=== PATIENT | male | born 1955 | race Caucasian/White ===

== ENCOUNTER 2016-11-30 03:10 | Emergency (ER) | payer MEDICARE, OTHER ==
--- NOTE | 2016-11-30 03:25 | ED Physician Documentation ---
General Adult - HISTORIAN Historian: paramedics, other (associate sales manager) - HPI Stated Complaint: fell Chief Complaint: General Adult Additional Information: Band Machine Operator in home today, found patient on floor at side of bed and could not get him up. Pt said to be not in his usual mental state. Patient's usual associate sales manager who was not present in the home today says patient began to fall out of bed two weeks ago, and today was the second time. Wet cough since 11/27. No fever. - ROS CONST: denies: fever GI/: other (typically a finicky eater) NEURO/PSYCH: difficulty walking (but not new. Wears a gait beltto facilitate assistance when needed.), difficulty with speech (impediment) - PAST HX Past History: other (Alzheimer's, NIDDM, seizures, severe MR, Down's syndrome) Allergies/Adverse Reactions: Allergies Allergy/AdvReac Type Severity Reaction Status Date / Time bacitracin Allergy Verified 11/30/16 03:35 [From Neosporin ([id number]-[id number])] bacitracin zinc Allergy Verified 11/30/16 03:35 [From Neosporin (cmk-tmq-egmse)] neomycin sulfate Allergy Verified 11/30/16 03:35 [From Neosporin (aiu-ztq-minzo)] polymyxin B Allergy Verified 11/30/16 03:35 [From Neosporin (dgx-xnc-swowc)] Home Medications: Ambulatory Orders Medication Instructions Recorded Acetaminophen [Tylenol Extra 1,000 mg PO Q4 PRN 11/03/13 Strength] Artificial Tears 11/03/13 Ibuprofen [Advil] 600 mg PO TID PRN 11/03/13 Levetiracetam [Keppra] 5 ml PO BID 11/30/16 Memantine HCl [Namenda] 10 mg PO BID 11/30/16 Zonisamide [Zonegran] 100 mg PO BID 11/30/16 - SOCIAL HX Smoking History: non-smoker - FAMILY HX Family History: No - VITAL SIGNS Vital Signs: Vital Signs Temp Pulse Resp BP Pulse Ox 128/68 11/03/13 13:35 - REVIEWED ASSESSMENTS Nursing Assessment Reviewed: Yes Vitals Reviewed: Yes Progress - Progress Progress: HISTORY: 61-year-old male with altered mental status, multiple falls COMPARISON: CT scan of the head dated 11/03/2013. TECHNIQUE: Noncontrast axial CT images of the head were performed. FINDINGS: There is mild global brain atrophy. There is mild decreased attenuation in the periventricular white matter No intracranial hemorrhage, mass , midline shift, or evidence of acute large vessel infarct. The atria and temporal horns of the lateral ventricles are more prominent than that seen on the previous CT scan. There is mucosal thickening and volume loss of the left maxillary sinus. There is bilateral EAC cerumen impaction. No cranial fracture or scalp edema. IMPRESSION: 1. No evidence of acute head trauma. 2. Mild global brain atrophy and chronic ischemic changes. As there is prominence of the lateral ventricles, especially involving the atria and temporal horns, consider normal pressure hydrocephalus. Electronically signed on Nov 30, 2016 4:47:16 AM CUSHION COVER INSPECTOR by: Vic Flanagan HISTORY: 61-year-old male with cough, multiple falls. COMPARISON: None available. TECHNIQUE: Single portable AP view of the chest was performed. FINDINGS: No pneumothorax, consolidative infiltrates, or pulmonary edema. The heart is not enlarged. No fractures are identified about the bony thorax. IMPRESSION: No acute cardiopulmonary process identified. Electronically signed on Nov 30, 2016 5:23:00 AM CUSHION COVER INSPECTOR by: Vic Flanagan Pulse ox 90-93% on RA. Email to Dr. Scruggs re: possible NPH noted above. ED Results Lab/Radiology - Orders Orders: ED Orders Category Date Time Status Saline Lock [Remove IV/Saline Lock] 1T Care 11/30/16 03:12 Ordered CHEST 1 VIEW [RAD] Stat Exams 11/30/[address] BRAIN W/O CONTRAST Stat Exams 11/30/16 Ordered CBC/PLATELET/DIFF Routine Lab 11/30/16 Ordered CMP Routine Lab 11/30/16 Ordered GRP A STREP SCREEN Stat Lab 11/30/16 Ordered INFLUENZA A&B Stat Lab 11/30/16 Uncollected URINALYSIS Routine Lab 11/30/16 Ordered General Adult Physical Exam - PHYSICAL EXAM GENERAL APPEARANCE: no distress EENT: eye inspection normal, ENT inspection normal NECK: normal inspection, supple RESPIRATORY: no resp distress, chest non-tender, breath sounds normal CVS: reg rate & rhythm, heart sounds normal ABDOMEN: soft, normal bowel sounds, no distension, non-tender RECTAL: deferred BACK: normal inspection, other (movements w/o pain) SKIN: warm/dry, normal color EXTREMITIES: non-tender, no evidence of injury NEURO: CN's nml as tested, motor nml, sensation nml Discharge Clincal Impression: Viral URI Additional Instructions: Drink plenty of water. Follow up with Dr. Scruggs if you have fevers 102 or higher or difficulty breathing. Home Medications: Ambulatory Orders Acetaminophen [Tylenol Extra Strength] 1,000 mg PO Q4 PRN 11/03/13 Artificial Tears 11/03/13 Ibuprofen [Advil] 600 mg PO TID PRN 11/03/13 Levetiracetam [Keppra] 5 ml PO BID 11/30/16 Memantine HCl [Namenda] 10 mg PO BID 11/30/16 Zonisamide [Zonegran] 100 mg PO BID 11/30/16 Condition: Fair Disposition: 01 HOME, SELF-CARE Decision to Admit: NO Decision Time: 05:32
[2016-11-30 04:01] LABS: eGFR (African) > 60; eGFR (Non-African) > 60
[2016-11-30 04:22] LABS: MEAN CORPUSCULAR HEMOGLOBIN 33.7 pg (28.0-34.0)
[2016-11-30 05:47] VITALS: BP 135/69
--- NOTE | 2016-11-30 07:31 | Diagnostic Imaging Report ---
[facility] [address] [facility] [address] [place], [place]. [address] Report Submission Date: Nov 30, 2016 4:47:16 AM PLANT PROTECTION SUPERVISOR Patient Study Name: JAYCEE CORRIGAN Date: Nov 30, 2016 3:55:28 AM PLANT PROTECTION SUPERVISOR Modality Type: CT\SR Gender: M Description: CT BRAIN W/O CONTRAST : 53 Institution: [facility] Physician: ALICJA RODRIGUEZ - ER HISTORY: 61-year-old male with altered mental status, multiple falls COMPARISON: CT scan of the head dated 11/03/2013. TECHNIQUE: Noncontrast axial CT images of the head were performed. FINDINGS: There is mild global brain atrophy. There is mild decreased attenuation in the periventricular white matter No intracranial hemorrhage, mass , midline shift, or evidence of acute large vessel infarct. The atria and temporal horns of the lateral ventricles are more prominent than that seen on the previous CT scan. There is mucosal thickening and volume loss of the left maxillary sinus. There is bilateral EAC cerumen impaction. No cranial fracture or scalp edema. IMPRESSION: 1. No evidence of acute head trauma. 2. Mild global brain atrophy and chronic ischemic changes. As there is prominence of the lateral ventricles, especially involving the atria and temporal horns, consider normal pressure hydrocephalus. Electronically signed on Nov 30, 2016 4:47:16 AM PLANT PROTECTION SUPERVISOR by: Vic HERNÁNDEZ
--- NOTE | 2016-11-30 07:32 | Diagnostic Imaging Report ---
[facility] [address] [facility] [address] Report Submission Date: Nov 30, 2016 5:23:00 AM CORRECTIONAL OFFICER Patient Study Name: JAYCEE CORRIGAN Date: Nov 30, 2016 4:04:40 AM CORRECTIONAL OFFICER Modality Type: CR Gender: M Description: CHEST : 53 Institution: [facility] Physician: ALICJA RODRIGUEZ - ER HISTORY: 61-year-old male with cough, multiple falls. COMPARISON: None available. TECHNIQUE: Single portable AP view of the chest was performed. FINDINGS: No pneumothorax, consolidative infiltrates, or pulmonary edema. The heart is not enlarged. No fractures are identified about the bony thorax. IMPRESSION: No acute cardiopulmonary process identified. Electronically signed on Nov 30, 2016 5:23:00 AM CORRECTIONAL OFFICER by: Vic HERNÁNDEZ
[2016-12-01 06:03] LABS: MONOCYTES % 5 % (0-11); SEGMENTED NEUTROPHILS % 83 % (39-79)
== END 2016-11-30 05:38 | disposition home or self-care (01) ==
LOC: ED 03:10
DX: J06.9 Acute upper respiratory infection, unspecified (principal)
CPT/HCPCS: 70450; 71010; 80053; 85025; 87070; 87400; 87880; 99283

== ENCOUNTER 2016-12-03 13:07 | Outpatient (CLI) | payer MEDICARE, MEDICAID ==
[2016-12-03 13:20] LABS: APPEARANCE,URINE Clear (CLEAR); COLOR,URINE Yellow (YELLOW); OCCULT BLOOD,URINE Negative (NEGATIVE); PH URINE 5.5 (5.0 - 8.0)
== END 2016-12-03 13:10 ==
LOC: LAB 13:07
PROVIDERS: ATTEND Physician Assistant
DX: R41.82 Altered mental status, unspecified (principal); W19.XXXA Unspecified fall, initial encounter; Y92.9 Unspecified place or not applicable; Y93.9 Activity, unspecified
CPT/HCPCS: 81002

== ENCOUNTER 2016-12-31 08:22 | Outpatient (CLI) | payer MEDICARE, OTHER | END 2016-12-31 08:24 | LOC: POD 08:22 | PROVIDERS: ATTEND Podiatrist Public Medicine | DX: E11.9 Type 2 diabetes mellitus without complications (principal); B35.1 Tinea unguium; L60.0 Ingrowing nail; M79.674 Pain in right toe(s); M79.675 Pain in left toe(s) | CPT/HCPCS: 11721; G0463 ==

== ENCOUNTER 2017-05-06 08:19 | Outpatient (CLI) | payer MEDICARE, OTHER | END 2017-05-06 08:20 | LOC: POD 08:19 | PROVIDERS: ATTEND Podiatrist Public Medicine | DX: E11.9 Type 2 diabetes mellitus without complications (principal); B35.1 Tinea unguium; L60.0 Ingrowing nail; M79.674 Pain in right toe(s); M79.675 Pain in left toe(s); M20.11 Hallux valgus (acquired), right foot; M20.12 Hallux valgus (acquired), left foot | CPT/HCPCS: 11721; G0463 ==

== ENCOUNTER 2017-07-25 09:05 | Emergency (ER) | payer MEDICARE, OTHER ==
[2017-07-25] MEDS ORDERED: 0.9 % SODIUM CHLORIDE 500 ML IV ONE (09:34)
--- NOTE | 2017-07-25 09:45 | ED Physician Documentation ---
General Adult - HISTORIAN Historian: patient - HPI Stated Complaint: Fatigue Chief Complaint: General Adult Onset: hours Timing: still present Severity: moderate Further Comments: yes (Pt is a 62 yo male with MR from [facility] who appears fatigued this am. "Not himself." Pt is not as active as usual. Pt has been eating, but not drinking as much as usual. Pt has hx seizure d/o.) - ROS CONST: other (Pt cannot give ROS) - PAST HX Past History: other (Down's Syndrome, seizure d/o, DM.) Allergies/Adverse Reactions: Allergies Allergy/AdvReac Type Severity Reaction Status Date / Time bacitracin Allergy Verified 07/25/17 09:20 [From Neosporin (shr-bpq-[id number])] bacitracin zinc Allergy Verified 07/25/17 09:20 [From Neosporin (cos-lxw-ypcnz)] neomycin sulfate Allergy Verified 07/25/17 09:20 [From Neosporin (jyl-pue-mtrcv)] polymyxin B Allergy Verified 07/25/17 09:20 [From Neosporin (krd-tba-zgbee)] Home Medications: Ambulatory Orders Medication Instructions Recorded Acetaminophen [Tylenol Extra 1,000 mg PO Q4 PRN 11/03/13 Strength] Artificial Tears 11/03/13 Ibuprofen [Advil] 600 mg PO TID PRN 11/03/13 Levetiracetam [Keppra] 5 ml PO BID 11/30/16 Memantine HCl [Namenda] 10 mg PO BID 11/30/16 Zonisamide [Zonegran] 100 mg PO BID 11/30/16 - SOCIAL HX Smoking History: non-smoker Alcohol Use: none Drug Use: none - FAMILY HX Family History: No - VITAL SIGNS Vital Signs: Vital Signs Temp Pulse Resp BP Pulse Ox 98 F 72 18 102/68 98 07/25/17 09:05 07/25/17 09:05 07/25/17 09:05 07/25/17 09:05 07/25/17 09:05 - REVIEWED ASSESSMENTS Nursing Assessment Reviewed: Yes Vitals Reviewed: Yes Progress - Progress Progress: 1 L NS IVF improved Keppra Level - pending Zonisamide Level - pending f/u pcp prn - EKG/XRAY/CT XRAY: chest (neg) ED Results Lab/Radiology - Orders Orders: ED Orders Category Date Time Status 0.9 % Sodium Chloride [Normal Saline] 500 ml Med 07/25/17 09:34 Discontinued IV .STK-MED General Adult Physical Exam - PHYSICAL EXAM GENERAL APPEARANCE: no distress EENT: eye inspection normal, pharynx normal NECK: normal inspection, supple RESPIRATORY: no resp distress, chest non-tender, breath sounds normal CVS: reg rate & rhythm, heart sounds normal ABDOMEN: soft, no organomegaly, normal bowel sounds BACK: normal inspection, no CVA tenderness SKIN: warm/dry, normal color EXTREMITIES: non-tender, normal range of motion, no edema NEURO: other (baseline neuromuscular status) Discharge Clincal Impression: Mild dehydration Referrals: Aguila Scruggs MD [Primary Care Provider] - Condition: Stable Disposition: 01 HOME, SELF-CARE Decision to Admit: NO Decision Time: 12:00
[2017-07-25] MEDS: 0.9 % SODIUM CHLORIDE 500 ML IV ONE ×2 (09:46→11:06)
[2017-07-25 10:04] LABS: BASOPHILS % 0.6 (0.0-1.5); EOSINOPHILS % 0.2 % (0.0-6.8); MEAN CORPUSCULAR HEMOGLOBIN 33.2 pg (28.0-34.0); MEAN CORPUSCULAR VOLUME 96.6 fl (80.0-100.0); MONOCYTES % 3.5 % (0.0-11.0); NEUTROPHILS # 10.3 # k/uL (1.4-7.7)
[2017-07-25 10:40] LABS: eGFR (African) > 60; eGFR (Non-African) > 60
[2017-07-25 12:16] VITALS: BP 127/62
--- NOTE | 2017-07-25 12:58 | Diagnostic Imaging Report ---
JAYCEE LIU - ROBERT [facility] [address] [facility] [address] [address] Report Submission Date: Jul 25, 2017 11:30:17 AM CDT Patient Study Name: JAYCEE CORRIGAN Date: Jul 25, 2017 11:03:07 AM CDT Modality Type: CR Gender: M Description: CHEST : 53 Institution: [facility] Physician: JAYCEE LIU - ER Chest -one view CLINICAL HISTORY: Cough. FINDINGS: Examination of the chest single portable AP view 07/25/2017 1103 hr with comparison to examination 11/30/2016 demonstrates lungs to be clear. Cardiovascular and mediastinal silhouettes are stable. The aorta is atherosclerotic. Bony thorax appears intact. IMPRESSION: No significant change. Aortic atherosclerosis. No active disease. Electronically signed on Jul 25, 2017 11:30:17 AM CDT by: Ethan HERNÁNDEZ
[2017-07-25 20:11] LABS: LEVETIRACETAM(KEPPRA) LEVEL 56.5 ug/mL (6.0-46.0)
== END 2017-07-25 12:14 | disposition home or self-care (01) ==
LOC: ED 09:05
DX: E86.0 Dehydration (principal)
CPT/HCPCS: 71010; 80053; 80177; 85025; G0480; J7060; 96360; 99283

== ENCOUNTER 2017-07-28 12:14 | Outpatient (CLI) | payer MEDICARE, OTHER ==
[2017-07-28 12:21] LABS: APPEARANCE,URINE Clear (CLEAR); COLOR,URINE Yellow (YELLOW); OCCULT BLOOD,URINE Negative (NEGATIVE); PH URINE 5.5 (5.0 - 8.0); UROBILINOGEN URINE 0.2 Eu (0.2-1.0)
== END 2017-07-28 12:15 ==
LOC: LAB 12:14
PROVIDERS: ATTEND Family Medicine
DX: R30.0 Dysuria (principal)
CPT/HCPCS: 81002

== ENCOUNTER 2017-08-05 08:34 | Outpatient (CLI) | payer MEDICARE, OTHER | END 2017-08-05 08:45 | LOC: POD 08:34 | PROVIDERS: ATTEND Podiatrist Public Medicine | DX: B35.1 Tinea unguium (principal); E11.9 Type 2 diabetes mellitus without complications; M20.12 Hallux valgus (acquired), left foot; M20.11 Hallux valgus (acquired), right foot; L60.0 Ingrowing nail; M79.675 Pain in left toe(s); M79.674 Pain in right toe(s) | CPT/HCPCS: 11721; G0463 ==

== ENCOUNTER 2017-09-02 08:08 | Outpatient (CLI) | payer MEDICARE, OTHER ==
[2017-09-02 08:38] LABS: MEAN CORPUSCULAR HEMOGLOBIN 32.6 pg (28.0-34.0); MEAN CORPUSCULAR VOLUME 101.7 fl (80.0-100.0)
[2017-09-02 09:23] LABS: eGFR (African) > 60; eGFR (Non-African) > 60
== END 2017-09-02 08:10 ==
LOC: LAB 08:08
PROVIDERS: ATTEND Family Medicine
DX: E11.9 Type 2 diabetes mellitus without complications (principal); Z79.899 Other long term (current) drug therapy; G40.909 Epilepsy, unspecified, not intractable, without status epilepticus
CPT/HCPCS: 36415; 80053; 80171; 80177; 83036; 85027

== ENCOUNTER 2017-11-04 08:46 | Outpatient (CLI) | payer MEDICARE, OTHER | END 2017-11-04 08:47 | LOC: POD 08:46 | PROVIDERS: ATTEND Podiatrist Public Medicine | DX: E11.9 Type 2 diabetes mellitus without complications (principal); B35.1 Tinea unguium; L60.0 Ingrowing nail; M79.674 Pain in right toe(s); M79.675 Pain in left toe(s); M20.11 Hallux valgus (acquired), right foot; M20.12 Hallux valgus (acquired), left foot | CPT/HCPCS: 11721; G0463 ==

== ENCOUNTER 2017-12-11 14:21 | Outpatient (CLI) | payer MEDICARE, OTHER ==
[2017-12-11 15:43] LABS: BASOPHILS % 0.2 (0.0-1.5); EOSINOPHILS % 0.1 % (0.0-6.8); MEAN CORPUSCULAR HEMOGLOBIN 33.7 pg (28.0-34.0); MEAN CORPUSCULAR VOLUME 99.5 fl (80.0-100.0); MONOCYTES % 3.8 % (0.0-11.0); NEUTROPHILS # 7.3 # k/uL (1.4-7.7)
[2017-12-11 17:28] LABS: eGFR (African) > 60; eGFR (Non-African) > 60
--- NOTE | 2017-12-11 19:05 | Diagnostic Imaging Report ---
DANUTA DONIS [facility] [address] [facility] [address] [address] Report Submission Date: Dec 11, 2017 3:13:41 PM PLATE GRINDER Patient Study Name: JAYCEE CORRIGAN Date: Dec 11, 2017 2:39:20 PM PLATE GRINDER Modality Type: DX Gender: M Description: CHEST : 53 Institution: [facility] Physician: DANUTA DONIS Examination: PA and lateral chest. History: CXR, AP AND LAT, LETHARGY X1 DAY, PT UNABLE TO FOLLOW BREATHING INSTRUCTIONS (Hx) Comparison exam: None available for direct review. Findings: PA lateral chest demonstrate a normal cardiac and mediastinal silhouette. Moderate to large sized right base parenchymal haziness with blunting of the costophrenic margin. Left hemithorax without focal consolidative process. Osseous structures are appropriate for age. Impression: Right base infiltrate/effusion. Electronically signed on Dec 11, 2017 3:13:41 PM PLATE GRINDER by: David HERNÁNDEZ
== END 2017-12-11 14:22 ==
LOC: LAB 14:21
PROVIDERS: ATTEND Physician Assistant
DX: R05 Cough (principal)
CPT/HCPCS: 36415; 71046; 80053; 85025

== ENCOUNTER 2017-12-21 08:00 | Emergency (ER) | payer MEDICARE, OTHER ==
[2017-12-21 09:12] LABS: eGFR (African) > 60; eGFR (Non-African) > 60
--- NOTE | 2017-12-21 09:47 | ED Physician Documentation ---
General Adult - HISTORIAN Historian: other (chronic care nurse) - HPI Stated Complaint: bilat foot swelling Chief Complaint: General Adult Further Comments: yes (62 year old male patient brought in via EMS with difficulty walking. Patient caregiver reports patient would not walk this morning. Patient is non-verbal, walks with assistance. bit shaver denies any injury or fall.) - ROS CONST: recent illness (pneumonia - recently treated with antibiotics. ) EYES/ENT: none CVS/RESP: none GI/: none MS/SKIN/LYMPH: ankle swelling - PAST HX Past History: other (Downs syndrome, mental retardation, Seizures, Alzheimers) Other History: diabetes Type 2 Allergies/Adverse Reactions: Allergies Allergy/AdvReac Type Severity Reaction Status Date / Time bacitracin Allergy Verified 07/25/17 09:20 [From Neosporin (ila-mhy-lbywj)] bacitracin zinc Allergy Verified 07/25/17 09:20 [From Neosporin (kpx-lxm-hfukm)] neomycin sulfate Allergy Verified 07/25/17 09:20 [From Neosporin (lxq-bks-qivrl)] polymyxin B Allergy Verified 07/25/17 09:20 [From Neosporin (cvs-zjf-dgsee)] Home Medications: Ambulatory Orders Medication Instructions Recorded Acetaminophen [Tylenol Extra 1,000 mg PO Q4 PRN 11/03/13 Strength] Artificial Tears 11/03/13 Ibuprofen [Advil] 600 mg PO TID PRN 11/03/13 Levetiracetam [Keppra] 5 ml PO BID 11/30/16 Memantine HCl [Namenda] 10 mg PO BID 11/30/16 Zonisamide [Zonegran] 100 mg PO BID 11/30/16 - SOCIAL HX Smoking History: non-smoker - FAMILY HX Family History: No - VITAL SIGNS Vital Signs: Vital Signs Temp Pulse Resp BP Pulse Ox 98.0 F 58 L 14 127/50 95 12/21/17 08:07 12/21/17 09:30 12/21/17 08:07 12/21/17 08:07 12/21/17 09:30 - REVIEWED ASSESSMENTS Nursing Assessment Reviewed: Yes Vitals Reviewed: Yes ED Results Lab/Radiology - Lab Results Lab Results: Lab Results 12/21/17 12/21/17 08:50 08:50 Sodium 145 mmol/L mmol/L (136-145) Potassium 3.9 mmol/L mmol/L (3.5-5.1) Chloride 104 mmol/L mmol/L (98-107) Carbon Dioxide 29 mmol/L mmol/L (22-30) BUN 15 mg/dL mg/dL (9-20) Creatinine 0.80 mg/dL mg/dL (0.66-1.25) Estimated Creat Clear 133 Est GFR ( Amer) > 60 (60 - ) Est GFR (Non-Af Amer) > 60 (60 - ) Glucose 164 mg/dL H mg/dL (74-106) Calcium 8.9 mg/dL mg/dL (8.4-10.2) Total Bilirubin 0.6 mg/dL mg/dL (0.2-1.3) AST 30 U/L U/L (15-46) ALT 42 U/L U/L (13-69) Alkaline Phosphatase 146 U/L H U/L (38-126) NT-Pro-B Natriuret Pep 97.6 pg/mL pg/mL (15.0-125.0) Total Protein 6.7 g/dL g/dL (6.3-8.2) Albumin 3.4 g/dL L g/dL (3.5-5.0) - Radiology Radiology Impressions: AP and lateral chest CLINICAL HISTORY: Cough. FINDINGS: Examination of the chest in AP and lateral views with comparison to examination of 12/11/2017 demonstrates improved aeration right lung base with minimal residual infiltrate or atelectasis. There is mild elevation right hemidiaphragm. Cardiovascular and mediastinal silhouettes are stable. The aorta is atherosclerotic. Left lung remains clear. IMPRESSION: Improved aeration right lung base with residual right basilar infiltrate or atelectasis. Electronically signed on Dec 21, 2017 8:46:54 AM CDT by: Ehtan Garza - Orders Orders: ED Orders Category Date Time Status Continuous EKG monitoring Q30M Care 12/21/17 08:07 Active Continuous Pulse Oximetry Q30M Care 12/21/17 08:[address] IV Lock 1T Care 12/21/17 08:08 Active CHEST 2VIEW [RAD] Stat Exams 12/21/17 08:09 Taken BNP [NT-proBNP] Stat Lab 12/21/17 08:50 Completed CBC REF Stat Lab 12/21/17 08:50 Received CMP Stat Lab 12/21/17 08:50 Completed UA W/MICRO IF INDICATED Stat Lab 12/21/17 08:08 Ordered EKG WITH COMPARISON Stat Ther 12/21/17 08:07 Completed General Adult Physical Exam - PHYSICAL EXAM GENERAL APPEARANCE: no distress EENT: eye inspection normal, BESSY RESPIRATORY: no resp distress, chest non-tender, breath sounds normal CVS: reg rate & rhythm, heart sounds normal, equal pulses, no murmur, no gallop , PMI nml, no JVD, no friction rub, 24 ABDOMEN: soft, no organomegaly, normal bowel sounds, no abdominal bruit, no distension SKIN: normal color, warm/dry, NR, INT, PAL, DR EXTREMITIES: non-tender, edema (3+ bilateral ankles) NEURO: other (non-verbal, MAEx4, calm and cooperative; ) Discharge Clincal Impression: Dependent edema Referrals: Aguila Scruggs MD [Primary Care Provider] - 2 Days Condition: Stable Disposition: 01 HOME, SELF-CARE Decision to Admit: NO Decision Time: 09:47
[2017-12-21 10:31] VITALS: BP 141/73
[2017-12-21 11:01] LABS: BASO % 0.6 % (0.0-1.5); EOS % 0.9 % (0.0-6.8); MCH. 33.6 pg (28.0-34.0); MONOCYTE % 3.7 % (0.0-11.0); MONOCYTE ABS # 0.35 thou/uL (0.00-0.90); PLATELET COUNT 323 thou/uL (130-400)
--- NOTE | 2017-12-21 14:32 | Diagnostic Imaging Report ---
LAKEISHA PADILLA (FURNACE CHARGER) - ER [facility] [address] [address] Report Submission Date: Dec 21, 2017 8:46:54 AM CDT Patient Study Name: JAYCEE CORRIGAN Date: Dec 21, 2017 8:20:27 AM CDT Modality Type: DX Gender: M Description: CHEST : 53 Institution: [facility] Physician: LAKEISHA PADILLA) - ER AP and lateral chest CLINICAL HISTORY: Cough. FINDINGS: Examination of the chest in AP and lateral views with comparison to examination of 12/11/2017 demonstrates improved aeration right lung base with minimal residual infiltrate or atelectasis. There is mild elevation right hemidiaphragm. Cardiovascular and mediastinal silhouettes are stable. The aorta is atherosclerotic. Left lung remains clear. IMPRESSION: Improved aeration right lung base with residual right basilar infiltrate or atelectasis. Electronically signed on Dec 21, 2017 8:46:54 AM CDT by: Ethan HERNÁNDEZ
--- NOTE | 2017-12-22 06:41 | Diagnostic Imaging Report ---
LAKEISHA PADILLA (CONCRETE PANEL INSTALLER) - ER [facility] [place] [facility] [address] [address] Report Submission Date: Dec 21, 2017 8:46:54 AM CDT Patient Study Name: JAYCEE CORRIGAN Date: Dec 21, 2017 8:20:27 AM CDT Modality Type: DX Gender: M Description: CHEST : 53 Institution: [facility] [place] [facility] Physician: LAKEISHA PADILLA) - ER AP and lateral chest CLINICAL HISTORY: Cough. FINDINGS: Examination of the chest in AP and lateral views with comparison to examination of 12/11/2017 demonstrates improved aeration right lung base with minimal residual infiltrate or atelectasis. There is mild elevation right hemidiaphragm. Cardiovascular and mediastinal silhouettes are stable. The aorta is atherosclerotic. Left lung remains clear. IMPRESSION: Improved aeration right lung base with residual right basilar infiltrate or atelectasis. Electronically signed on Dec 21, 2017 8:46:54 AM CDT by: Ethan HERNÁNDEZ
== END 2017-12-21 10:29 | disposition home or self-care (01) ==
LOC: ED 08:00
DX: R60.9 Edema, unspecified (principal)
CPT/HCPCS: 71046; 80053; 83880; 85025; 99283; S1016

== ENCOUNTER 2017-12-23 08:00 | Emergency (ER) | payer MEDICARE, OTHER ==
--- NOTE | 2017-12-23 08:07 | ED Physician Documentation ---
General Adult - HISTORIAN Historian: patient - HPI Stated Complaint: urinary retention Chief Complaint: Male Genitourinary Problems Onset: other (over last two weeks urinary output has decreased) Timing: still present Severity: mild Further Comments: yes (his caregiver states he has not had any urinary output since 4pm yesterday States 2 weeks now he has had decreased ouput. denies any pain symptoms . Pt is tolieted he does not tell staff when he needs to urinate no fever.) Last known Well Code/Unknown Code: Unknown - ROS CONST: no problems, recent illness (pnuemonia ) EYES/ENT: none CVS/RESP: none GI/: none MS/SKIN/LYMPH: none - PAST HX Past History: other Surgeries/Procedures: other Immunizations: UTD Allergies/Adverse Reactions: Allergies Allergy/AdvReac Type Severity Reaction Status Date / Time bacitracin Allergy Verified 07/25/17 09:20 [From Neosporin (wxe-btv-pwyct)] bacitracin zinc Allergy Verified 07/25/17 09:20 [From Neosporin (mtr-bft-dcngm)] neomycin sulfate Allergy Verified 07/25/17 09:20 [From Neosporin (asi-zgq-eutzr)] polymyxin B Allergy Verified 07/25/17 09:20 [From Neosporin (auf-qyc-twsqz)] Home Medications: Ambulatory Orders Medication Instructions Recorded Acetaminophen [Tylenol Extra 1,000 mg PO Q4 PRN 11/03/13 Strength] Artificial Tears 11/03/13 Ibuprofen [Advil] 600 mg PO TID PRN 11/03/13 Levetiracetam [Keppra] 5 ml PO BID 11/30/16 Memantine HCl [Namenda] 10 mg PO BID 11/30/16 Zonisamide [Zonegran] 100 mg PO BID 11/30/16 - SOCIAL HX Smoking History: non-smoker Alcohol Use: none Drug Use: none - FAMILY HX Family History: No - VITAL SIGNS Vital Signs: Vital Signs Temp Pulse Resp BP Pulse Ox 141/73 12/21/17 10:29 - REVIEWED ASSESSMENTS Nursing Assessment Reviewed: Yes Vitals Reviewed: Yes General Adult Physical Exam - PHYSICAL EXAM GENERAL APPEARANCE: no distress EENT: eye inspection normal RESPIRATORY: no resp distress, chest non-tender, breath sounds normal CVS: reg rate & rhythm, heart sounds normal, equal pulses, no murmur ABDOMEN: soft, no organomegaly, normal bowel sounds SKIN: warm/dry NEURO: other (does not speak. is awake caregiver says this is his normal cognitition ) Discharge Clincal Impression: Urinary retention Referrals: Aguila Scruggs MD [Primary Care Provider] - 2 Days Comments: 1. increase fluids 2. toilet frequently 3. Keep follow up with Dr Scruggs 4. Return to ER for any concerns of retention Condition: Stable Disposition: 01 HOME, SELF-CARE Decision to Admit: NO Date of Decison to Admit: 12/23/17 Decision Time: 08:26
[2017-12-23 08:47] VITALS: BP 150/68
[2017-12-24 06:23] LABS: APPEARANCE,URINE CLEAR (CLEAR); COLOR,URINE YELLOW (YELLOW)
[2017-12-24 06:24] LABS: OCCULT BLOOD,URINE NEGATIVE (NEGATIVE); PH URINE 7.5 (5.0 - 8.0)
== END 2017-12-23 08:46 | disposition home or self-care (01) ==
LOC: ED 08:00
DX: R33.9 Retention of urine, unspecified (principal)
CPT/HCPCS: 51701; 81002; 99282

== ENCOUNTER 2017-12-23 15:31 | Inpatient (IN) | payer MEDICARE, OTHER ==
[2017-12-23] MEDS ORDERED: HYPROMELLOSE OPTH DROPS OP PRN (15:48)
[2017-12-23 16:27] LABS: eGFR (African) > 60; eGFR (Non-African) > 60
[2017-12-23 16:29] LABS: BASOPHILS % 0.3 (0.0-1.5); EOSINOPHILS % 0.4 % (0.0-6.8); MEAN CORPUSCULAR HEMOGLOBIN 32.5 pg (28.0-34.0); MEAN CORPUSCULAR VOLUME 99.2 fl (80.0-100.0); MONOCYTES % 5.1 % (0.0-11.0); NEUTROPHILS # 7.9 # k/uL (1.4-7.7)
[2017-12-23] MEDS ORDERED: LEVOFLOXACIN 500MG/D5W 100ML 100 ML IV ONE (16:36)
[2017-12-23 16:46] VITALS: BMI 25.4
[2017-12-23] MEDS: 0.9 % SODIUM CHLORIDE 1,000 ML IV SCH (18:06)
[2017-12-23] MEDS: PIPERACILLIN SODIUM/TAZOBACTAM 3.375 GM VIAL IV SCH ×3 (18:12→23:56)
[2017-12-23] MEDS: ENOXAPARIN SODIUM 30 MG/0.3 ML DISP.SYRIN SQ SCH (18:18)
--- NOTE | 2017-12-23 18:21 | Diagnostic Imaging Report ---
[facility]/MED SURG [facility] [address] [facility] [address] [address] Report Submission Date: Dec 23, 2017 5:31:18 PM CDT Patient Study Name: JAYCEE CORRIGAN Date: Dec 23, 2017 4:10:20 PM CDT Modality Type: DX Gender: M Description: CHEST : 53 Institution: [facility] Physician: [facility] WING/MED SURG Chest, AP portable HISTORY Pneumonia. FINDINGS There is minimal residual right lower lobe infiltrate. There is no pleural effusion or pneumothorax. Heart size and pulmonary vascularity are normal. Since 12/21/2017, no change has occurred. IMPRESSION Minimal residual right lower lobe infiltrate. Electronically signed on Dec 23, 2017 5:31:18 PM CDT by: Joel HERNÁNDEZ
[2017-12-23] MEDS: LEVOFLOXACIN 500MG/D5W 100ML 500 MG in PREMIX BAG 1 BAG IV SCH (20:01)
[2017-12-23] MEDS: ZIPRASIDONE HCL 20 MG CAP PO SCH ×3 (20:05→20:11)
[2017-12-23] MEDS: DONEPEZIL HCL 5 MG TABLET PO SCH ×2 (20:07)
[2017-12-23] MEDS: IPRATROPIUM/ALBUTEROL SULFATE 3 ML AMPUL.NEB NEB SCH ×2 (20:08→22:13)
[2017-12-23] MEDS: MEMANTINE HCL 10 MG TABLET PO SCH (20:09)
[2017-12-24] MEDS ORDERED: LEVOFLOXACIN 500MG/D5W 100ML 100 ML IV ONE (01:30)
[2017-12-24] MEDS: IPRATROPIUM/ALBUTEROL SULFATE 3 ML AMPUL.NEB NEB SCH ×4 (04:21→22:03)
[2017-12-24] MEDS: 0.9 % SODIUM CHLORIDE 1,000 ML IV SCH ×3 (05:27→18:09)
[2017-12-24] MEDS: PIPERACILLIN SODIUM/TAZOBACTAM 3.375 GM VIAL IV SCH ×3 (05:28→17:16)
--- NOTE | 2017-12-24 08:56 | Inpatient Progress Note ---
Subjective - Required Recertification Statement I anticipate X number of days because-include discharge plan: 1 - Review of Systems Events since last encounter: Blake looks significantly better today. His mottling and cyanosis of his extremities are much improved. He is eating better and ate most of his breakfast this morning with the exception of his hash browns. He is more alert , but as is his baseline, he does not speak. His prostate exam today shows little enlargement or warmth. I will remove his catheter today and see if he can urinate on his own. General: Denies: Chills, Night Sweats HEENT: Denies: Head Aches Pulmonary: Denies: Dyspnea Cardiovascular: Denies: Chest Pain, Palpitations Gastrointestinal: Denies: Nausea Genitourinary: Retention. Denies: Dysuria Musculoskeletal: Denies: Neck Pain Neurological: Weakness Objective - Exam Vitals and I&O: Vital Signs Temp 97.3 F L 12/24/17 05:47 Pulse 87 12/24/17 05:47 Resp 17 12/24/17 05:47 BP 148/82 12/24/17 05:47 Pulse Ox 95 12/24/17 05:47 Intake & Output 12/23/17 12/23/17 12/24/17 11:59 23:59 11:59 Intake Total 340 1260 Output Total 650 400 Balance -310 860 Weight 69.4 kg Intake: IV 100 1200 Right Forearm 100 1200 Oral 240 60 Output: Urine 650 400 Uretheral (Rowe) 650 Other: Voiding Method Indwelling Catheter General: Other (Overweight), Discheveled HEENT: Atraumatic, PERRLA, EOMI Neck: Supple, No JVD Lungs: Normal air movement, Wheezes Cardiovascular: Regular rate, Normal S1, Normal S2 Abdomen: Normal bowel sounds Extremities: No clubbing, No cyanosis, Other (Cyanosis is much improved) Skin: Normal, [place] Neurological: Normal gait, Normal speech Psych/Mental Status: Mental status NL, Mood NL Other physical findings: prostate is not enlarged, no nodules noted - Results Results: Laboratory Results WBC 9.60 K/ul (4.00-12.00) 12/23/17 16:10 RBC 4.13 M/ul (3.90-5.20) 12/23/17 16:10 Hgb 13.4 g/dL (12.0-18.0) 12/23/17 16:10 Hct 40.9 % (37.0-53.0) 12/23/17 16:10 MCV 99.2 fl (80.0-100.0) 12/23/17 16:10 MCH 32.5 pg (28.0-34.0) 12/23/17 16:10 MCHC 32.8 g/dL (30.0-36.0) 12/23/17 16:10 RDW 12.9 % (11.3-14.3) 12/23/17 16:10 Plt Count 311 K/mm3 (130-400) 12/23/17 16:10 Neut % (Auto) 81.6 % (39.0-79.0) H 12/23/17 16:10 Lymph % (Auto) 11.3 % (16.0-50.0) L 12/23/17 16:10 [place] % (Auto) 5.1 % (0.0-11.0) 12/23/17 16:10 Eos % (Auto) 0.4 % (0.0-6.8) 12/23/17 16:10 Baso % (Auto) 0.3 (0.0-1.5) 12/23/17 16:10 Neut # (Auto) 7.9 # k/uL (1.4-7.7) H 12/23/17 16:10 Lymph # (Auto) 1.1 # k/uL (0.6-4.0) 12/23/17 16:10 [place] # (Auto) 0.5 # k/uL (0.0-0.9) 12/23/17 16:10 Eos # (Auto) 0.0 # k/uL (0.0-0.6) 12/23/17 16:10 Baso # (Auto) 0.0 # k/uL (0.0-0.5) 12/23/17 16:10 Reactive Lymphs % 1.2 % (0.0-5.0) 12/23/17 16:10 Reactive Lymphs # 0.1 # k/uL (0.0-0.8) 12/23/17 16:10 Sodium 141 mmol/L (136-145) 12/23/17 16:00 Potassium 3.9 mmol/L (3.5-5.1) 12/23/17 16:00 Chloride 103 mmol/L (98-107) 12/23/17 16:00 Carbon Dioxide 26 mmol/L (22-30) 12/23/17 16:00 BUN 15 mg/dL (9-20) 12/23/17 16:00 Creatinine 0.90 mg/dL (0.66-1.25) 12/23/17 16:00 Est GFR ( Amer) > 60 (60-) 12/23/17 16:00 Est GFR (Non-Af Amer) > 60 (60-) 12/23/17 16:00 Glucose 161 mg/dL (74-106) H 12/23/17 16:00 Calcium 8.7 mg/dL (8.4-10.2) 12/23/17 16:00 Total Bilirubin 0.7 mg/dL (0.2-1.3) 12/23/17 16:00 AST 27 U/L (15-46) 12/23/17 16:00 ALT 33 U/L (13-69) 12/23/17 16:00 Alkaline Phosphatase 138 U/L (38-126) H 12/23/17 16:00 Total Protein 6.4 g/dL (6.3-8.2) 12/23/17 16:00 Albumin 3.2 g/dL (3.5-5.0) L 12/23/17 16:00 Assessment/Plan - Assessment/Plan (1) Right lower lobe pneumonia Status: Acute Current Visit: Yes Assessment: Continue current antibiotic therapy (2) Mild dehydration Status: Acute Current Visit: No Assessment: Continue current IVF (3) Urinary retention Status: Acute Current Visit: No Assessment: Will remove urinary catheter today to see if he can pass urine on his own.
[2017-12-24] MEDS ORDERED: levETIRAcetam 500 MG TABLET PO SCH (09:00)
[2017-12-24] MEDS: MEMANTINE HCL 10 MG TABLET PO SCH ×2 (09:25→20:35)
[2017-12-24] MEDS: TAMSULOSIN HCL 0.4 MG CAP.ER.24H PO SCH ×2 (09:26→17:13)
[2017-12-24] MEDS: CYANOCOBALAMIN (VITAMIN B12) 1,000 MCG TABLET PO SCH (09:26)
[2017-12-24] MEDS: LEVOFLOXACIN 500MG/D5W 100ML 500 MG in PREMIX BAG 1 BAG IV SCH (09:30)
--- NOTE | 2017-12-24 10:28 | History and Physical Report ---
CHIEF COMPLAINT: 1. Mental status changes. 2. Urinary retention that failed outpatient treatment. 3. Right lower lobe pneumonia. HISTORY OF PRESENT ILLNESS: This is a 62-year-old male well known to myself with a history of Down's Syndrome who resides at a long term here in town who presents with decreased level of alertness. He also had been unable to pass any urine spontaneously. He was taken to the emergency room last night. Because of this, urinary catheterization was done. He had 700 mL out and he was sent back home. He has , again, not passed any urine today despite adequate oral fluid intake. He is also having some mottling of his hands. He is less responsive. He will no longer bear weight. He does not appear to be in any pain at this time, however. Again, when he was seen in the emergency room, he was noted to have a right lower lobe pneumonia which persisted. He did have improved aeration, however. He has had an outpatient course of oral cefuroxime. PAST MEDICAL HISTORY: 1. History of trisomy 21. 2. Diabetes mellitus type 2. 3. Dementia. 4. Seizure disorder, onset October 2013. He sees Dr. Rutherford at the [facility]. 5. Mental retardation. PAST SURGICAL HISTORY: Eyelid reconstruction. MEDICATIONS: 1. Metformin 500 mg p.o. b.i.d. 2. Vitamin B12, 1000 mg daily. 3. Keppra 500 mg p.o. b.i.d. 4. Namenda 10 mg p.o. b.i.d. 5. Zonegran 100 mg b.i.d. This is written by Dr. Rutherford. 6. Donepezil 10 mg daily. 7. Several p.r.n. medications. ALLERGIES: Neomycin topical ophthalmic drops. No other allergies. SOCIAL HISTORY: He is single and has never . He lives in a long term. He is very closely attended to by caregiver, Octavio. FAMILY HISTORY: He has a family history of 2 brothers with type 2 diabetes. REVIEW OF SYSTEMS: Review of systems cannot be obtained because he is nonresponsive. PHYSICAL EXAMINATION: General: This is a very minimally responsive 62-year-old male. He has mottling of his lower extremities, as well as his hands. HEENT: Shows his head to be normocephalic and atraumatic. His hair is closely cropped. He has facies consistent with Down's Syndrome. His dentition are in somewhat poor repair. Neck: No carotid bruits. No thyroid masses. Lungs: His lungs have decreased air movement in all lung [place] and the right base is markedly diminished. Heart: His heart is regular. He has a 2/6 ejection murmur. Abdomen: Soft. He does not seem to have any pain to palpation. Normoactive bowel sounds are appreciated. Genitourinary: He is not circumcised. Testes are down bilaterally. He does have a little bit of yeast rash in his inguinal region. Extremities: Again, cool to the touch. Some mottling is noted. DIAGNOSTIC STUDIES: Labs including CBC and CMP and a chest x-ray are pending at this time. However , yesterday's chest x-ray showed persistent right lower lobe pneumonia. ASSESSMENT: 1. Acute urinary retention, failed outpatient treatment. 2. Right lower lobe pneumonia, failed outpatient treatment. 3. Down's Syndrome. 4. Significant mental status change. 5. Seizure disorder without any active seizure activity. 6. Dementia. PLAN: 1. I am going to start him on IV normal saline at 100 mL an hour. 2. I am going to start him on piperacillin/tazobactam with IV levofloxacin 500 mg daily. 3. Supplemental oxygen at 2 L per nasal cannula. 4. A Rowe catheter is placed to dependent drainage. 5. We will monitor his urinary output. 6. CBC and CMP are pending, as well as a chest x-ray. 7. He will likely need placement on discharge, as his caregiver does not feel that he will be able to go back to his long term. EDGAR
[2017-12-24] MEDS ORDERED: NYSTATIN POWDER BOTTLE TP ONE (11:12)
[2017-12-24] MEDS: levETIRAcetam 500 MG TABLET PO SCH ×2 (12:55→20:35)
[2017-12-24] MEDS: ENOXAPARIN SODIUM 30 MG/0.3 ML DISP.SYRIN SQ SCH (16:14)
[2017-12-24] MEDS: DONEPEZIL HCL 5 MG TABLET PO SCH (20:35)
[2017-12-24] MEDS: ZIPRASIDONE HCL 20 MG CAP PO SCH (20:36)
[2017-12-25] MEDS: PIPERACILLIN SODIUM/TAZOBACTAM 3.375 GM VIAL IV SCH ×3 (00:12→11:54)
[2017-12-25] MEDS: 0.9 % SODIUM CHLORIDE 1,000 ML IV SCH ×2 (04:32→04:33)
[2017-12-25] MEDS: IPRATROPIUM/ALBUTEROL SULFATE 3 ML AMPUL.NEB NEB SCH ×2 (05:16→10:05)
[2017-12-25 07:16] LABS: MEAN CORPUSCULAR HEMOGLOBIN 32.9 pg (28.0-34.0); MEAN CORPUSCULAR VOLUME 99.6 fl (80.0-100.0)
[2017-12-25 07:55] LABS: eGFR (African) > 60; eGFR (Non-African) > 60
[2017-12-25] MEDS: levETIRAcetam 500 MG TABLET PO SCH (09:58)
[2017-12-25] MEDS ORDERED: LEVOFLOXACIN 500MG/D5W 100ML 100 ML IV ONE (09:59)
[2017-12-25] MEDS: MEMANTINE HCL 10 MG TABLET PO SCH (10:01)
[2017-12-25] MEDS: CYANOCOBALAMIN (VITAMIN B12) 1,000 MCG TABLET PO SCH (10:02)
[2017-12-25] MEDS: LEVOFLOXACIN 500MG/D5W 100ML 500 MG in PREMIX BAG 1 BAG IV SCH (10:02)
[2017-12-25 14:43] VITALS: BP 145/86
[2017-12-25] MEDS: ENOXAPARIN SODIUM 30 MG/0.3 ML DISP.SYRIN SQ SCH (15:53)
--- NOTE | 2017-12-28 10:50 | Discharge Summary ---
DATE OF ADMISSION: December 23, 2017 DATE OF DISCHARGE: December 25, 2017 DIAGNOSES ON THIS HOSPITALIZATION: 1. Right lower lobe pneumonia. 2. Mental status change. 3. Urinary obstruction/retention. 4. Down's syndrome. 5. Seizure disorder without any active seizure activity. 6. Dementia. SUMMARIZATION OF ADMISSION HISTORY AND PHYSICAL: This is a 62-year-old male well known to myself with a history of Down's syndrome who resides at a [facility] here in town who presented with decreased level of alertness. He had been unable to pass any urine spontaneously and was taken to the emergency room last night. Because of this, urinary catheterization was done and he had 700 mL out and was sent back home. He was again not passing any urine again today and I felt like he needed to be admitted because of his mental status changes, persistent right lower lobe pneumonia noted in the ER last night, as well as his urinary retention. HOSPITAL COURSE: He was admitted. Clinically, he improved markedly. We tried to remove his Rowe catheter, however, he was once again unable to urinate. As a result, the Rowe catheter had to be replaced. The [facility] said they do not have anyone trained to manage a Rowe catheter, so he will be transferred then to [facility] while we arrange outpatient urology care. He is continued on all of his current medications with the addition of Flomax 0.4 mg p.o. daily, as well as levofloxacin 500 mg p.o. daily for another 7 days. CONDITION ON DISCHARGE: He is discharged to [facility] in improved condition. EDGAR
== END 2017-12-25 16:00 | DRG 195 ==
LOC: SOUTH 15:31
PROVIDERS: ADMIT Family Medicine; ATTEND Family Medicine
DX: J18.1 Lobar pneumonia, unspecified organism (principal); R41.82 Altered mental status, unspecified; N13.9 Obstructive and reflux uropathy, unspecified; R33.9 Retention of urine, unspecified; Q90.9 Down syndrome, unspecified; R56.9 Unspecified convulsions; F03.90 Unspecified dementia, unspecified severity, without behavioral disturbance, psychotic disturbance, mood disturbance, and anxiety
CPT/HCPCS: 36415; 71045; 80053; 80177; 85025; 85027; J1650; J1956; J2543; J7030; 99222; 99232; 99238; S1016

== ENCOUNTER 2018-02-03 09:06 | Outpatient (CLI) | payer MEDICARE, OTHER | END 2018-02-03 09:08 | LOC: POD 09:06 | PROVIDERS: ATTEND Podiatrist Public Medicine | DX: E11.9 Type 2 diabetes mellitus without complications (principal); B35.1 Tinea unguium; M20.12 Hallux valgus (acquired), left foot; M20.11 Hallux valgus (acquired), right foot; L60.0 Ingrowing nail; M79.675 Pain in left toe(s); M79.674 Pain in right toe(s) | CPT/HCPCS: 11721; G0463 ==

== ENCOUNTER 2018-03-21 12:49 | Emergency (ER) | payer MEDICARE, OTHER ==
[2018-03-21] MEDS ORDERED: GUM MASTIC/STORAX/MSAL/ALCOHOL 1 EACH DROPERETTE TP ONE ×2 (12:57→13:50)
--- NOTE | 2018-03-21 12:58 | ED Physician Documentation ---
Head Injury - HISTORIAN Historian: patient - HPI Stated Complaint: head laceration Chief Complaint: Head Injury Onset: just prior to arrival Where: home Timing: still present Context: fall Severity: mild Loss of Consciousness: unsure Further Comments: yes (He is with a toddler caregiver and the toddler caregiver is not sure if he had any LOC. there is a laceration over the left lateral eye. he has no changes in his mental status- he is non verbal at all times. He does not answer questions appropriately (this is not new) He responds with sounds (not new)) - ROS CONST: no problems CVS/RESP: none EYES/ENT: other (CYRUS ) GI/: denies: nausea, vomiting - PAST HX Past History: other (DM, Downs Syndrome, seizure disorder. ) Immunizations: UTD Allergies/Adverse Reactions: Allergies Allergy/AdvReac Type Severity Reaction Status Date / Time bacitracin Allergy Verified 03/21/18 13:28 [From Neosporin ([id number])] bacitracin zinc Allergy Verified 03/21/18 13:28 [From Neosporin ([id number])] neomycin sulfate Allergy Verified 03/21/18 13:28 [From Neosporin ([id number])] polymyxin B Allergy Verified 03/21/18 13:28 [From Neosporin ([id number])] Home Medications: Ambulatory Orders Medication Instructions Recorded Acetaminophen [Tylenol Extra 1,000 mg PO Q4 PRN 11/03/13 Strength] Artificial Tears 1 drop TOP DAILY 11/03/13 Ibuprofen [Advil] 600 mg PO TID PRN 11/03/13 Levetiracetam [Keppra] 5 ml PO BID 11/30/16 Memantine HCl [Namenda] 10 mg PO BID 11/30/16 Zonisamide [Zonegran] 100 mg PO BID 11/30/16 - SOCIAL HX Smoking History: non-smoker Alcohol Use: none Drug Use: none - FAMILY HX Family History: none - VITAL SIGNS Vital Signs: Vital Signs Temp Pulse Resp BP Pulse Ox 97 F L 81 20 85/40 03/21/18 13:21 03/21/18 14:39 03/21/18 14:39 03/21/18 14:39 - REVIEWED ASSESSMENTS Nursing Assessment Reviewed: Yes Vitals Reviewed: Yes Procedures Wound Location: face Wound's Depth, Shape: superficial Wound Explored: clean Wound Repaired With: Dermabond ED Results Lab/Radiology - Radiology Radiology Impressions: Examination: CT head without contrast History: PT'S PSYCHIATRIC MENTAL HEALTH NURSE STATES FALL TODAY. THERE IS LACERATION TO THE RIGHT SIDE OF HEAD. PT WAS UNABLE TO STAY STILL FOR EXAM AND FOLLOW INSTRUCTIONS (Hx) Comparison exam: None available Technique: Noncontrast head CT protocol. Findings: Patient positioning and motion artifact reduces sensitivity. Ventricles and sulci are prominent. Cerebrocerebellar parenchyma demonstrates periventricular low attenuation consistent with small vessel disease. No evidence for parenchymal hemorrhage. No evidence for mass or mass effect. No midline shift. No extra axial fluid collections. Partial visualization of the paranasal sinuses, mastoid air cells, orbits, skull and scalp without gross irregularity. Impression: Limited examination to patient motion/positioning. Advanced age related changes. No acute parenchymal process. No hemorrhage. Electronically signed on Mar 21, 2018 1:44:57 PM CDT by: David Lozoya - Orders Orders: ED Orders Category Date Time Status Cleanse with NS and Chlorhexid 1T Care 03/21/18 12:[address] BRAIN W/O CONTRAST Stat Exams 03/21/18 Completed Gum Shellman/Storax/Msal/Alcohol [Mastisol Adhesive Med 03/21/18 12:57 Discontinued Liquid] 1 each TP .STK-MED ONE Head Injury Physical Exam - Physical Exam General Appearance: no acute distress, alert Head: non-tender, trauma (2 cm laceration over left eye ) Neck: non-tender, painless ROM Eyes: BESSY Neuro: alert, other (he is not verbally responsive appropriately (per toddler caregiver this is his normal state) ) Cranial: No: facial droop Cerebellar: nml as tested (CYRUS ) Sensorimotor: motor nml (CYRUS ) Resp/CVS: chest non-tender, breath sounds nml, heart sounds nml, no resp. distress, lungs clear, reg. rate & rhythm Abdomen: non-tender Back: non-tender Skin: warm/dry, normal color Extremities: atraumatic - [place] Coma Score Coma Scale Eye Opening: Spontaneous Coma Scale Verbal: Incomprehensible (this is not new per toddler caregiver) Coma Scale Motor: None (not new according to toddler caregiver) Discharge Clincal Impression: Head injury Qualifiers: Encounter type: initial encounter Qualified Code(s): S09.90XA - Unspecified injury of head, initial encounter Laceration of head Qualifiers: Encounter type: initial encounter Location of open wound of head: eyelid Foreign body presence: without foreign body Laterality: left Qualified Code(s): S01.112A - Laceration without foreign body of left eyelid and periocular area, initial encounter Referrals: Aguila Scruggs MD [Primary Care Provider] - 2 Days Additional Instructions: 1. Keep area clean and dry 2. Notify PCP of any increase in swelling, pain or drainage 3. Monitor normal level of consciousness 4. Return to ER for any concerns Condition: Stable Disposition: 01 HOME, SELF-CARE Decision to Admit: NO Date of Decison to Admit: 03/21/18 Decision Time: 13:50
[2018-03-21 13:28] VITALS: BP 85/40
--- NOTE | 2018-03-21 14:00 | Diagnostic Imaging Report ---
[facility] [address] [facility] [address] [place], [place]. [address] Report Submission Date: Mar 21, 2018 1:44:57 PM CDT Patient Study Name: JAYCEE CORRIGAN Date: Mar 21, 2018 1:12:38 PM CDT Modality Type: CT\SR Gender: M Description: CT BRAIN W/O CONTRAST : 53 Institution: [facility] Physician: HANS CUELLAR Examination: CT head without contrast History: PT'S ELECTRONIC TEST TECHNICIAN STATES FALL TODAY. THERE IS LACERATION TO THE RIGHT SIDE OF HEAD. PT WAS UNABLE TO STAY STILL FOR EXAM AND FOLLOW INSTRUCTIONS (Hx) Comparison exam: None available Technique: Noncontrast head CT protocol. Findings: Patient positioning and motion artifact reduces sensitivity. Ventricles and sulci are prominent. Cerebrocerebellar parenchyma demonstrates periventricular low attenuation consistent with small vessel disease. No evidence for parenchymal hemorrhage. No evidence for mass or mass effect. No midline shift. No extra axial fluid collections. Partial visualization of the paranasal sinuses, mastoid air cells, orbits, skull and scalp without gross irregularity. Impression: Limited examination to patient motion/positioning. Advanced age related changes. No acute parenchymal process. No hemorrhage. Electronically signed on Mar 21, 2018 1:44:57 PM CDT by: David HERNÁNDEZ
== END 2018-03-21 14:05 | disposition home or self-care (01) ==
LOC: ED 12:49
DX: S09.90XA Unspecified injury of head, initial encounter (principal); S01.112A Laceration without foreign body of left eyelid and periocular area, initial encounter; W19.XXXA Unspecified fall, initial encounter; Y92.9 Unspecified place or not applicable; Y93.9 Activity, unspecified; Y99.9 Unspecified external cause status
CPT/HCPCS: 12011; 70450

== ENCOUNTER 2018-04-05 09:38 | Emergency (ER) | payer MEDICARE, OTHER ==
[2018-04-05 10:00] LABS: MEAN CORPUSCULAR HEMOGLOBIN 33.1 pg (28.0-34.0); MEAN CORPUSCULAR VOLUME 100.9 fl (80.0-100.0)
[2018-04-05 10:10] LABS: SEGMENTED NEUTROPHILS % 93 % (39-79)
[2018-04-05 10:11] LABS: MONOCYTES % 2 % (0-11)
[2018-04-05 10:17] LABS: eGFR (African) 49; eGFR (Non-African) 41
[2018-04-05 10:48] LABS: APPEARANCE,URINE CLOUDY (CLEAR); COLOR,URINE RED (YELLOW); OCCULT BLOOD,URINE 3+ (NEGATIVE); PH URINE 8.5 (5.0 - 8.0)
[2018-04-05] MEDS ORDERED: VANCOMYCIN HCL 1 GM in 0.9 % SODIUM CHLORIDE 500 ML IV ONE (10:59)
[2018-04-05] MEDS ORDERED: NOREPINEPHRINE BITARTRATE 1 MG/ML 4ML IV SCH (11:00)
[2018-04-05] MEDS ORDERED: MEROPENEM 1,000 MG in 0.9 % SODIUM CHLORIDE 50 ML IV ONE (11:16)
[2018-04-05] MEDS ORDERED: ROCURONIUM BROMIDE 10 MG/ML 5ML VIAL IVP ONE (11:20)
[2018-04-05] MEDS ORDERED: ETOMIDATE 20 MG/10 ML IV ONE (11:20)
--- NOTE | 2018-04-05 11:32 | Diagnostic Imaging Report ---
LAKEISHA PADILLA (BICYCLE MESSENGER) - ER [facility] [address] [facility] [address] Report Submission Date: Apr 05, 2018 10:34:34 AM CDT Patient Study Name: JAYCEE CORRIGAN Date: Apr 05, 2018 10:06:00 AM CDT Modality Type: DX Gender: M Description: CHEST : 53 Institution: [facility] Physician: LAKEISHA PADILLA (BICYCLE MESSENGER) - ER Examination: Portable chest History: Post intubation patient unresponsive due to code (Hx) Comparison exam: Findings: Single view of the chest demonstrates and overpenetrated examination. Normal cardiac and mediastinal silhouette. Elevated right hemidiaphragm. Right infrahilar haziness. No blunting of the costophrenic margins. Endotracheal tube : tip 3.2 cm above the dorie. Articular degenerative changes. Impression: Right infrahilar infiltrate. No effusion. Endotracheal tube: tip 3.2 cm above the dorie Electronically signed on Apr 05, 2018 10:34:34 AM CDT by: David HERNÁNDEZ
[2018-04-05] MEDS ORDERED: 0.9 % SODIUM CHLORIDE 1,000 ML IV ONE ×2 (11:54→13:14)
[2018-04-05 12:25] VITALS: BP 92/55
--- NOTE | 2018-04-05 14:48 | ED Physician Documentation ---
General Adult - HISTORIAN Historian: paramedics - [facility] Stated Complaint: resp distress Chief Complaint: General Adult Further Comments: yes (62 year old male patient brought in via EMS. [facility] patient was found to be cyanotic with poor respiratory effort. IV started in field, intubation attempt with no sedation, unsuccessful. Bagging with 100% BVM on arrival, minimal respiratory effort, minimal withdraw to pain. GCS 6. EMS reports patient had recently been at [facility] for pneumonia. Driscoll catheter in place with crusting in tube, scant dark urine.) - ROS CONST: no problems (Patient unable to answer due to critical status. No foster care social worker at bedside. History obtained from [facility] old records; no records from prison. ) - PAST HX Past History: hypertension Other History: other (RLL pneumonia, Downs Syndrome, dementia, seizures - on Keppra, mental retardation, urinary obstruction; coccyx wound) Allergies/Adverse Reactions: Allergies Allergy/AdvReac Type Severity Reaction Status Date / Time bacitracin Allergy Verified 03/21/18 13:28 [From Neosporin ([id number])] bacitracin zinc Allergy Verified 03/21/18 13:28 [From Neosporin ([id number])] neomycin sulfate Allergy Verified 03/21/18 13:28 [From Neosporin ([id number])] polymyxin B Allergy Verified 03/21/18 13:28 [From Neosporin ([id number])] Home Medications: Ambulatory Orders Medication Instructions Recorded Acetaminophen [Tylenol Extra 1,000 mg PO Q4 PRN 11/03/13 Strength] Artificial Tears 1 drop TOP DAILY 11/03/13 Ibuprofen [Advil] 600 mg PO TID PRN 11/03/13 Levetiracetam [Keppra] 5 ml PO BID 11/30/16 Memantine HCl [Namenda] 10 mg PO BID 11/30/16 Zonisamide [Zonegran] 100 mg PO BID 11/30/16 - SOCIAL HX Smoking History: non-smoker - FAMILY HX Family History: No - VITAL SIGNS Vital Signs: Vital Signs Temp Pulse Resp BP Pulse Ox 97.0 F L 96 H 12 92/55 95 04/05/18 12:22 04/05/18 12:22 04/05/18 12:22 04/05/18 12:22 04/05/18 12:22 - REVIEWED ASSESSMENTS Nursing Assessment Reviewed: Yes Vitals Reviewed: Yes Progress - Progress Progress: On arrival, bagging with 100%; minimal respiratory effort. Prepared for intubation. Prompt gag with attempt at intubation; RSI with rocurium and etomidate. 7.5 ETT, 24 at the lip; BBS auscultated. IV boluses infusing for hypotension. Old driscoll dc'd and new catheter place; UA obtained from new driscoll. Patient with MAP 58-60 after 3L NS; levophed started. Unable to obtain arterial blood gas; difficult stick. Brother at bedside. Patient is a full code. Caregiver from home with brother. Patient was at [facility] in December, discharged to [facility] with driscoll. Patient was recently inpatient at [facility]. Caregiver with multiple negative comments about [facility]. Explained to Brother that patient would need to be sent to ICU. Options are [facility] or [facility]. Brother would prefer [facility]. 1100 Call to [facility], case reviewed with Chris. [address] Shabazz; reviewed case including lab, recommended start Vancomycin and give 1G meropenem. 1200 [facility] at bedside; care transfered to flight team. Levophed at 6mcg/min at discharge; vancomycin and meropenem infusing; 3L NS given. Critical Care Note - Critical Care Note Total Time (mins): 70 ED Results Lab/Radiology - Lab Results Lab Results: Lab Results 04/05/18 04/05/18 04/05/18 10:35 09:55 09:55 WBC RBC Hgb Hct MCV MCH MCHC RDW Plt Count Seg Neutrophils % Band Neutrophils % Lymphocytes % Monocytes % Plt Morphology Comment Macrocytosis RBC Morph Comment Sodium Potassium Chloride Carbon Dioxide BUN Creatinine Est GFR ( Amer) Est GFR (Non-Af Amer) Glucose Lactate 9.1 U/L H U/L (0.7-2.1) Calcium Total Bilirubin AST ALT Alkaline Phosphatase Troponin I 0.03 ng/mL ng/mL (0.03-0.06) Total Protein Albumin Urine Color Red (YELLOW) Urine Appearance Cloudy (CLEAR) Urine pH 8.5 (5.0 - 8.0) Ur Specific [place] 1.020 (1.010-1.030) Urine Protein 3+ mg/dL H mg/dL (NEGATIVE) Urine Ketones Trace mg/dL H mg/dL (NEGATIVE) Urine Occult Blood 3+ H (NEGATIVE) Urine Nitrite Positive H (NEGATIVE) Urine Bilirubin 1+ H (NEGATIVE) Urine Urobilinogen 1.0 Eu Eu (0.2-1.0) Ur Leukocyte Esterase 3+ H (NEGATIVE) Urine RBC 25-50 H (0-2 HPF) Urine WBC >100 H (0-5 HPF) Ur Squamous Epith Cells Few (NEG-FEW) Urine Bacteria Moderate H (NEGATIVE) Urine Mucus Present H (NEGATIVE) Urine Glucose Tr mg/dL mg/dL (NEGATIVE) 04/05/18 04/05/18 09:55 09:55 WBC 26.71 K/ul H K/ul (4.00-12.00) RBC 3.42 M/ul L M/ul (3.90-5.20) Hgb 11.3 g/dL L g/dL (12.0-18.0) Hct 34.5 % L % (37.0-53.0) MCV 100.9 fl H fl (80.0-100.0) MCH 33.1 pg pg (28.0-34.0) MCHC 32.8 g/dL g/dL (30.0-36.0) RDW 15.0 % H % (11.3-14.3) Plt Count 340 K/mm3 K/mm3 (130-400) Seg Neutrophils % 93 % H % (39-79) Band Neutrophils % 3 % % (0-12) Lymphocytes % 2 % L % (16-50) Monocytes % 2 % % (0-11) Plt Morphology Comment Normal (NORMAL) Macrocytosis 1+ H (NEGATIVE) RBC Morph Comment Abnormal H (NORMAL) Sodium 140 mmol/L mmol/L (136-145) Potassium 4.1 mmol/L mmol/L (3.5-5.1) Chloride 108 mmol/L H mmol/L (98-107) Carbon Dioxide 16 mmol/L L mmol/L (22-30) BUN 27 mg/dL H mg/dL (9-20) Creatinine 1.80 mg/dL H mg/dL (0.66-1.25) Est GFR ( Amer) 49 L (60 - ) Est GFR (Non-Af Amer) 41 L (60 - ) Glucose 164 mg/dL H mg/dL (74-106) Lactate Calcium 8.8 mg/dL mg/dL (8.4-10.2) Total Bilirubin 0.2 mg/dL mg/dL (0.2-1.3) AST 33 U/L U/L (15-46) ALT 28 U/L U/L (13-69) Alkaline Phosphatase 180 U/L H U/L (38-126) Troponin I Total Protein 5.4 g/dL L g/dL (6.3-8.2) Albumin 2.4 g/dL L g/dL (3.5-5.0) Urine Color Urine Appearance Urine pH Ur Specific [place] Urine Protein Urine Ketones Urine Occult Blood Urine Nitrite Urine Bilirubin Urine Urobilinogen Ur Leukocyte Esterase Urine RBC Urine WBC Ur Squamous Epith Cells Urine Bacteria Urine Mucus Urine Glucose - Orders Orders: ED Orders Category Date Time Status Arterial Blood Gas 1T Care 04/05/18 10:15 Active Continuous EKG monitoring Q30M Care 04/05/18 10:12 Active Continuous Pulse Oximetry Q30M Care 04/05/18 10:12 Active Driscoll [Urinary catheterization] 1T Care 04/05/18 10:11 Active NG [Insert NG tube] 1T Care 04/05/18 10:12 Active CHEST 1VIEW [RAD] Stat Exams 04/05/18 10:11 Completed BLOOD CULTURE Stat Lab 04/05/18 10:35 Received CBC AUTO DIFF Routine Lab 04/05/18 09:55 Completed CMP Routine Lab 04/05/18 09:55 Completed LACTATE Stat Lab 04/05/18 09:55 Completed TROPONIN I (cTnI) Routine Lab 04/05/18 09:55 Completed UA W/MICRO IF INDICATED Stat Lab 04/05/18 10:35 Completed URINE CULTURE Stat Lab 04/05/18 10:35 Received 0.9 % Sodium Chloride [Normal Saline] 1,000 ml Med 04/05/18 11:54 Discontinued IV .STK-MED 0.9 % Sodium Chloride [Normal Saline] 1,000 ml Med 04/05/18 13:14 Discontinued IV .STK-MED Etomidate [Amidate] Med 04/05/18 11:20 Discontinued 6 mg IV NOW ONE Meropenem 1,000 mg Med 04/05/18 11:16 Ordered 0.9 % Sodium Chloride [Sodium Chloride] 50 ml IV NOW Norepinephrine Bitartrate [Levophed] Med 04/05/18 11:00 Ordered 8 mg IV 1T Rocuronium [place] [Zemuron] Med 04/05/18 11:20 Discontinued 70 mg IVP NOW ONE Vancomycin HCl [Vancocin] 1 gm Med 04/05/18 10:59 Discontinued 0.9 % Sodium Chloride [Normal Saline] 500 ml IV NOW General Adult Physical Exam - PHYSICAL EXAM GENERAL APPEARANCE: thin, emaciated frail (respiratory distress) EENT: other (pupils pinpoint) RESPIRATORY: other (respiratory failure; course bilateral; bagging with 100% BVM ) CVS: heart sounds normal, equal pulses, no murmur, no gallop, PMI nml, no JVD, no friction rub, tachycardia ABDOMEN: soft, no organomegaly, no abdominal bruit, no distension, abnormal bowel sounds BACK: normal inspection SKIN: warm/dry, pallor, other (Coccyx wound - 4 cm; 1.5 cm deep with nonviable tissue; buttocks with bilateral linear stage 2 wounds 2.5 cm x 6 cm; multiple pressure areas noted on feet and heels. ) EXTREMITIES: no evidence of injury, no edema NEURO: other (delayed withdraw to pain; + gag reflex with placement of MAC blade. ) Discharge Clincal Impression: Dehydration Right lower lobe pneumonia Qualifiers: Pneumonia type: due to unspecified organism Qualified Code(s): J18.1 - Lobar pneumonia, unspecified organism Sepsis Qualifiers: Sepsis type: sepsis due to unspecified organism Qualified Code(s): A41.9 - Sepsis, unspecified organism Respiratory failure Qualifiers: Chronicity: acute Respiratory failure complication: hypoxia Qualified Code(s): J96.01 - Acute respiratory failure with hypoxia Hypotension Qualifiers: Hypotension type: hypotension due to hypovolemia Qualified Code(s): I95.89 - Other hypotension; E86.1 - Hypovolemia; E86.1 - Hypovolemia Wound of left buttock Qualifiers: Encounter type: initial encounter Qualified Code(s): S31.829A - Unspecified open wound of left buttock, initial encounter Wound of right buttock Qualifiers: Encounter type: initial encounter Qualified Code(s): S31.819A - Unspecified open wound of right buttock, initial encounter Wound of sacral region Qualifiers: Encounter type: initial encounter Qualified Code(s): S31.000A - Unspecified open wound of lower back and pelvis without penetration into retroperitoneum, initial encounter Condition: Critical Disposition: 02 XFER SHT-TRM HOSP Decision to Admit: NO Decision Time: 12:00
== END 2018-04-05 11:55 | disposition short-term general hospital (02) ==
LOC: ED 09:38
DX: E86.0 Dehydration (principal); J18.1 Lobar pneumonia, unspecified organism; A41.9 Sepsis, unspecified organism; J96.01 Acute respiratory failure with hypoxia; I95.89 Other hypotension; S31.829A Unspecified open wound of left buttock, initial encounter; S31.819A Unspecified open wound of right buttock, initial encounter; S31.000A Unspecified open wound of lower back and pelvis without penetration into retroperitoneum, initial encounter; X58.XXXA Exposure to other specified factors, initial encounter; Y92.9 Unspecified place or not applicable; Y93.9 Activity, unspecified; Y99.9 Unspecified external cause status
CPT/HCPCS: 36415; 51702; 71045; 80053; 81002; 83605; 84484; 85025; 87040; 87086; 99281; 99285; 99291; J3370; J3490; J7060; 87186; 96360; 96361; 96365; 96368; 96375; S1016